=== PATIENT | female | born 1995 | race Caucasian/White ===

== ENCOUNTER 2022-04-05 07:26 | Outpatient (CLI) | payer BC, SELFPAY ==
--- NOTE | ~2022-04-05 | US_ITS ---
EXAMINATION: US thyroid DATE: 04/05/2022 08:29 INDICATION: Nontoxic goiter. TECHNIQUE: Multiple ultrasound images of the thyroid were obtained. COMPARISON: None. FINDINGS: The right thyroid lobe measures 4.4 x 1.5 x 1.7 cm. The left thyroid lobe measures 4.0 x 1.3 x 1.9 c m. There is normal echotexture and echogenicity throughout the thyroid gland. No discrete nodules id entified. Normal vascular flow is present. IMPRESSION: 1. Normal thyroid. Reviewed, dictated and finalized at location A. IMPRESSION: 1. Normal thyroid.
== END 2022-04-05 07:27 ==
PROVIDERS: PCP Family Medicine; Visit Provider Obstetrics & Gynecology
DX: E04.9 Nontoxic goiter, unspecified (principal)
CPT/HCPCS: 76536

== ENCOUNTER 2022-06-19 17:30 | Emergency (ER) | payer BC, SELFPAY ==
--- NOTE | ~2022-06-19 | XR_ITS ---
XR wrist LT min 3V DATE: 06/19/2022 18:07 INDICATION: Wrist pain for one week TECHNIQUE: 4 views COMPARISON: None FINDINGS: No fracture or dislocation, periosteal reaction or bone destruction. Joint spaces are well preserved. No erosive change or chondrocalcinosis. IMPRESSION: No fracture or dislocation Reviewed, dictated and finalized at location B. IMPRESSION: No fracture or dislocation
[2022-06-19 17:55] VITALS: BP 140/96; PULSE 73; RESP 18; TEMP 36.7; O2SAT 100
--- NOTE | 2022-06-19 18:35 | ED.UPPEXIN ---
HPI - Extremity Injury (Upper) General Chief Complaint: Extremity Injury, Upper Stated Complaint: left wrist pain Time Seen by Provider: 06/19/22 17:55 Source: patient, RN notes reviewed and old records reviewed Mode of arrival: ambulatory Limitations: no limitations History of Present Illness HPI narrative: 26 year old female who present to [facility] care with complaints of twisting her wrist one week ago when filling her dog automatic water bowl and then lifting it one week ago. She states that she initially iced her wrist and took Ibuprofen but here today because she is still having pain to her left wrist. No obvious deformity noted, patient has good mobility to her left wrist with strong left radial pulse and brisk capillary refill to her fingers. MD complaint: injury to: left and wrist Onset (ago): week(s) (one) Handedness: right Severity scale (1-10): 5 Treatments prior to arrival: cold therapy and NSAIDS Related Data Allergies Allergy/AdvReac Type Severity Reaction Status Date / Time No Known Allergies Allergy Verified 04/30/22 15:12 Review of Systems Review of Systems: CONSTITUTIONAL: Denies fever, chills, or sweats. EYES: Denies visual changes, redness, or discharge. ENT: Denies rhinorrhea, congestion, sore throat, or otalgia. CARDIOVASCULAR: Denies chest pain, palpitations, or edema. RESPIRATORY: Denies cough or dyspnea. GASTROINTESTINAL: Denies abdominal pain, nausea, vomiting, or diarrhea. GENITOURINARY: Denies dysuria or hematuria. SKIN: Denies rash or itching. MUSCULOSKELETAL: Denies back pain,positive for left wrist joint pain, or myalgia. NEUROLOGIC: Denies headache, numbness, or weakness. PSYCHIATRIC: Denies anxiety or depression. All systems reviewed & are unremarkable except as noted in HPI and below PMFSH Past Medical History Medical History (Updated 06/22/22 @ 14:54 by Lavonne Dsouza NP) Hypertension Surgical History Surgical History No significant past surgical history Social History Social History (Updated 06/22/22 @ 14:54 by Lavonne Dsouza NP) Smoking status: Never smoker Alcohol intake: current Substance use: never Living arrangements: with family Gender identity (if verbalized by the patient): Female Comments At time of signature, agree with nursing past medical, surgical, social and family history. There is no relevant family history pertinent to the presenting complaint Exam Narrative: GENERAL: Well-appearing, well-nourished, and in no acute distress. HEAD: Normocephalic, atraumatic. EYES: PERRLA and EOMI. ENT: Nares clear, no rhinorrhea or epistaxis. Mucous membranes moist.TM's normal with good light reflex, throat pink with no lesions or exudate or tonsil swelling NECK: Supple. no lymphadenopathy CHEST: Clear to auscultation. No respiratory distress. HEART: Regular rate and rhythm. No murmur heard. Normal peripheral pulses. ABDOMEN: Soft, nontender, nondistended, normal active bowel sounds. EXTREMITIES: Normal range of motion. No edema.Full ROM of left wrist noted with pain with some movement of wrist, strong left radial pulse sensation intact. SKIN: Warm, dry, no rash. NEURO: No focal deficits. Alert and oriented x3. Course Course Level of Care: Express Care Visit Vital Signs Vital signs: Vital Signs Temperature 36.7 C 06/19/22 17:55 Pulse Rate 73 06/19/22 17:55 Respiratory Rate 18 06/19/22 17:55 Blood Pressure 140/96 H 06/19/22 17:55 Pulse Oximetry 100 06/19/22 17:55 Oxygen Delivery Room Air 06/19/22 17:55 Temperature 36.7 C 06/19/22 17:55 Pulse Rate 73 06/19/22 17:55 Respiratory Rate 18 06/19/22 17:55 Blood Pressure 140/96 H 06/19/22 17:55 Pulse Oximetry 100 06/19/22 17:55 Oxygen Delivery Room Air 06/19/22 17:55 MDM - Extremity Injury (Upper) MDM Narrative Medical decision making narrative: left wrist sprain, left wrist fracture, left wrist pain, le
== END 2022-06-19 19:00 | disposition home or self-care (01) ==
PROVIDERS: Emergency Provider Registered Nurse
DX: S63.502A Unspecified sprain of left wrist, initial encounter (principal); S66.912A Strain of unspecified muscle, fascia and tendon at wrist and hand level, left hand, initial encounter; X50.9XXA Other and unspecified overexertion or strenuous movements or postures, initial encounter; I10 Essential (primary) hypertension
CPT/HCPCS: 73110; 99213; G0463